=== PATIENT | female | born 1930 | race Caucasian/White ===

== ENCOUNTER 2022-01-20 17:16 | Inpatient (IN) | payer OTHER ==
[~2022-01-20] VITALS: Ht 127 cm; Wt 68.0 kg
[2022-01-20] MEDS ORDERED: JANUVIA25 MG (17:26)
[2022-01-20] MEDS ORDERED: ZESTRIL5 MG (17:26)
[2022-01-20] MEDS ORDERED: ATORVASTATIN CA10 MG (17:26)
[2022-01-22] MEDS ORDERED: FOLIC ACID1 MG (16:00)
[2022-01-22] MEDS ORDERED: ROSUVASTATIN CAL5 MG (16:01)
[2022-01-22] MEDS ORDERED: RESTASIS1 EACH (16:01)
[2022-01-23] MEDS ORDERED: METRONIDAZOLE500 MG PO (19:15)
[2022-01-23] MEDS ORDERED: CIPRO250 MG PO (19:15)
[2022-01-23] MEDS ORDERED: INTESTINEX680 M1 PO (19:15)
[2022-01-23] MEDS ORDERED: PEPCID AC20 MG PO (19:15)
== END 2022-01-23 19:35 | disposition home or self-care (01) | DRG 392 ==
LOC: ER 17:16 → MEDJ 01-21 15:35
PROVIDERS: ADMIT Internal Medicine; ATTEND Internal Medicine
DX: K52.89 Other specified noninfective gastroenteritis and colitis (principal); K62.5 Hemorrhage of anus and rectum; N17.8 Other acute kidney failure; Z79.4 Long term (current) use of insulin; I12.9 Hypertensive chronic kidney disease with stage 1 through stage 4 chronic kidney disease, or unspecified chronic kidney disease; E11.22 Type 2 diabetes mellitus with diabetic chronic kidney disease; N18.9 Chronic kidney disease, unspecified; E86.0 Dehydration; E87.8 Other disorders of electrolyte and fluid balance, not elsewhere classified; Z20.822 Contact with and (suspected) exposure to COVID-19